=== PATIENT | female | born 1945 | race Caucasian/White ===

== ENCOUNTER 2018-01-06 09:58 | Inpatient (IN) | payer MEDICARE, BC ==
[2018-01-06] MEDS ORDERED: SODIUM CHLORIDE 0.9% 1,000 ML IV ONE (10:25)
[2018-01-06 10:49] LABS: Anisocytosis Slight; Basophils % (A) 1 %; Eosinophils # (A) 0.3 k/uL (0-0.7); Eosinophils % (A) 4 %; HCT 40.6 % (34.0-46.0); HGB 12.8 gm/dL (11.4-16.0); Hypochromasia Slight; Lymphocytes # (A) 0.7 k/uL (1.0-4.8); Lymphocytes % (A) 9 %; MCH 25.4 pg (25.0-35.0); MCHC 31.6 g/dL (31.0-37.0); MCV 80.4 fL (80.0-100.0); Mean Platelet Volume 8.9; Monocytes # (A) 0.8 k/uL (0-1.0); Monocytes % (A) 11 %; Neutrophils % (A) 75 %; Platelet Count 163 k/uL (150-450); RBC 5.05 m/uL (3.80-5.40)
--- NOTE | 2018-01-06 10:49 | ED ---
Skin/Abscess/FB HPI <Fernando Hu - Last Filed: 01/06/18 11:36> - General Source: patient Mode of arrival: ambulatory Limitations: no limitations <Rachel Chapa - Last Filed: 01/06/18 16:46> - General Chief complaint: Skin/Abscess/Foreign Body Stated complaint: Finger abscess Time Seen by Provider: 01/06/18 10:07 - History of Present Illness Initial comments: 72-year-old female past medical history of coronary artery disease, hypertension , end-stage renal disease and lymphoma status post bone marrow transplant presenting today for chief complaint of left middle finger abscess, swelling and pain. She states that 3 weeks ago she noticed a bump on her knuckle. Sunday of last week pt noticed it looked as though it developed a pus pocket. Patient scheduled appointment with her primary care provider, who performed an I&D and patient was discharged with a prescription for doxycycline 100 mg twice a day. Patient states this was performed by nurse practitioner Marsha. Patient states she has been compliant with medication, however the swelling, redness and pain has increased. Patient states that is difficult to extend finger secondary to pain and swelling. She states that the pulses returned, and seemed to spread. Patient denies any fever or chills, general malaise. When symptoms began to worsen today she presents emergency department for evaluation. Upon arrival patient afebrile, nontoxic-appearing. Vital signs within acceptable limits. Remainder of ROS negative, Patient denies any recent shortness of breath, chest pain, back pain, abdominal pain, nausea or vomiting, numbness or tingling, dysuria or hematuria, constipation or diarrhea, headaches or visual changes, or any other complaints. Upon arrival pt is well appearing, VS within acceptable limits. Afebrile. (Rachel Chapa) - Related Data Home Medications Medication Instructions Recorded Confirmed ALPRAZolam [Xanax] 0.5 mg PO BID 01/06/18 01/06/18 Acetaminophen [Tylenol Arthritis] 650 mg PO BID 01/06/18 01/06/18 Atenolol [Tenormin] 50 mg PO DAILY 01/06/18 01/06/18 Atorvastatin [Lipitor] 20 mg PO HS 01/06/18 01/06/18 Cholecalciferol (Vitamin D3) 2,000 unit PO DAILY 01/06/18 01/06/18 [Vitamin D3] Gabapentin [Neurontin] 100 mg PO DAILY PRN 01/06/18 01/06/18 Isosorbide Mononitrate ER [Imdur] 60 mg PO DAILY 01/06/18 01/06/18 RX: Aspirin EC [Ecotrin] 325 mg PO DAILY 01/06/18 01/06/18 RX: Calcitriol 0.5 mcg PO DAILY 01/06/18 01/06/18 RX: Calcitriol 0.5 mcg PO MOWEFR 01/06/18 01/06/18 RX: Doxycycline Hyclate 100 mg PO BID 01/06/18 01/06/18 RX: Omeprazole [PriLOSEC] 20 mg PO DAILY 01/06/18 01/06/18 RX: Sodium Bicarbonate Tab 1,300 mg PO BID 01/06/18 01/06/18 Sertraline [Zoloft] 100 mg PO DAILY 01/06/18 01/06/18 Zolpidem [Ambien] 10 mg PO HS PRN 01/06/18 01/06/18 amLODIPine [Norvasc] 10 mg PO DAILY 01/06/18 01/06/18 Allergies Allergy/AdvReac Type Severity Reaction Status Date / Time filgrastim [From Neupogen] AdvReac Unknown Verified 01/06/18 14:45 Review of Systems ROS Other: All systems not noted in ROS Statement are negative. <Fernando Hu - Last Filed: 01/06/18 11:36> ROS Other: All systems not noted in ROS Statement are negative. Constitutional: Reports: night sweats (chronic since lymphoma-no changes). Denies: fever, chills Respiratory: Denies: cough, dyspnea, wheezes, hemoptysis, stridor Cardiovascular: Denies: chest pain, palpitations Endocrine: Denies: fatigue Gastrointestinal: Denies: abdominal pain, nausea, vomiting, diarrhea, constipation, hematemesis, melena Genitourinary: Denies: urgency, dysuria, frequency, hematuria, discharge Musculoskeletal: Denies: back pain Skin: Reports: as per HPI, change in color (eyrthema/swelling left middle finger ) Neurological: Denies: headache, weakness, numbness, paresthesias, confusion <Rachel Chapa - Last Filed: 01/06/18 16:46> ROS Statement: Those systems with pertinent positive or pertinent negative responses have been documented in the HPI. Past Medical History Past Medical History: Hyperlipidemia, Hypertension Additional Past Medical History / Comment(s): Lymphoma, end stage renal failure History of Any Multi-Drug Resistant Organisms: None Reported Past Surgical History: Heart Catheterization With Stent Past Psychological History: Anxiety Smoking Status: Former smoker Past Alcohol Use History: None Reported Past Drug Use History: None Reported <Rachel Chapa - Last Filed: 01/06/18 16:46> General Exam <HuFernando - Last Filed: 01/06/18 11:36> Limitations: no limitations <Rachel Chapa - Last Filed: 01/06/18 16:46> - General Exam Comments Initial Comments: General: The patient is awake and alert, in no distress, and does not appear acutely ill. Eye: Pupils are equal, round and reactive to light, extra-ocular movements are intact. No nystagmus. There is normal conjunctiva bilaterally. No signs of icterus. Ears, nose, mouth and throat: There are moist mucous membranes and no oral lesions. Cardiovascular: There is a regular rate and rhythm. No murmur, rub or gallop is appreciated. Respiratory: Lungs are clear to auscultation, respirations are non-labored, breath sounds are equal. No wheezes, stridor, rales, or rhonchi. Musculoskeletal: Normal ROM, no tenderness. Strength 5/5. Sensation intact. Pulses equal bilaterally 2+. Neurological: A&O x 3. CN II-XII intact, There are no obvious motor or sensory deficits. Coordination appears grossly intact. Speech is normal. Skin: Skin is warm and dry. Left middle finger, fusiform swelling and erythema. Abscess noted at proximal end of finger nail plate. Fluctuant. Patient is unable to fully extend finger secondary to pain. Patient has tenderness to patient along the flexor tendon. Psychiatric: Cooperative, appropriate mood & affect, normal judgment. (Rachel Chapa) Vital Signs 01/06/18 09:59 Temperature 98.6 F Pulse Rate 79 Respiratory 16 Rate Blood Pressure 141/85 O2 Sat by Pulse 98 Oximetry Procedures - Incision & Drainage Consent Obtained: verbal consent Time Out Performed?: Yes Indication: left middle f imger Site: hand Size (cm): 2 Anesthetic Used: lidocaine 1% Amount (mLs): 2 I&D Cleaning Method: Iodine Sterile Field Used?: Yes Scalpel Used: #11 Needle Aspiration Performed?: No Irrigation Performed?: Yes I&D Drainage Obtained: Pus (minimal), Blood Culture Obtained?: Yes Patient Tolerated Procedure: well, no complications <Rachel Chapa - Last Filed: 01/06/18 16:46> Medical Decision Making - Lab Data Result diagrams: 01/06/18 10:35 01/06/18 10:35 <Fernando Hu - Last Filed: 01/06/18 11:36> - Lab Data Result diagrams: 01/06/18 10:35 01/06/18 10:35 <Rachel Chapa - Last Filed: 01/06/18 16:46> - Medical Decision Making IClayton, personally saw and examined the patient. I have reviewed and agree with the PA findings, including all diagnostic interpretations and treatment plans as written unless otherwise stated. I was present for the aldana portions of any procedures performed and the inclusive time noted for any critical care statement. (Fernando Hu) 72-year-old presenting today for chief complaint of left middle finger swelling , pain and abscess. Pt currently on doxycycline from primary provider. Cultures pending at [facility] from I&D peformed 12/31. Physical exam findings concerning for paronychia, with subsequent infectious tenosynovitis vs cellulitis with abscess. Blood cultures pending. Wound cultures obtained. Laboratory findings reveal elevation of ESR and CRP. WBC WNL. BUN/Cr elevated, pt end stage renal, upon chart review this appears to be consistent with baseline. I&D performed, drainage was minimum-sterile bandage applied. Pt tolerated procedure well. Pt will be admitted to Dr. Kelly with orthopedic consult. Dr. Trujillo consulted who spoke with Dr. Hu, no further instruction. Pt started on Vancomycin and ceftriaxone. Pt transferred to floor in stable condition. (Rachel Chapa) - Lab Data Lab Results 01/06/18 01/06/18 01/06/18 Range/Units 10:35 10:35 10:35 WBC 8.0 (3.8-10.6) k/uL RBC 5.05 (3.80-5.40) m/uL Hgb 12.8 (11.4-16.0) gm/dL Hct 40.6 (34.0-46.0) % MCV 80.4 (80.0-100.0) fL MCH 25.4 (25.0-35.0) pg MCHC 31.6 (31.0-37.0) g/dL RDW 16.0 H (11.5-15.5) % Plt Count 163 (150-450) k/uL Neutrophils % 75 % Lymphocytes % 9 % Monocytes % 11 % Eosinophils % 4 % Basophils % 1 % Neutrophils # 6.0 (1.3-7.7) k/uL Lymphocytes # 0.7 L (1.0-4.8) k/uL Monocytes # 0.8 (0-1.0) k/uL Eosinophils # 0.3 (0-0.7) k/uL Basophils # 0.0 (0-0.2) k/uL Hypochromasia Slight Anisocytosis Slight ESR 32 H (0-20) mm/hr Sodium 140 (137-145) mmol/L Potassium 4.2 (3.5-5.1) mmol/L Chloride 111 H (98-107) mmol/L Carbon Dioxide 17 L (22-30) mmol/L Anion Gap 12 mmol/L BUN 43 H (7-17) mg/dL Creatinine 2.92 H (0.52-1.04) mg/dL Est GFR (CKD-EPI)AfAm 18 (>60 ml/min/1.73 sqM) Est GFR (CKD-EPI)NonAf 15 (>60 ml/min/1.73 sqM) Glucose 131 H (74-99) mg/dL Plasma Lactic Acid Zeeshan 1.1 (0.7-2.0) mmol/L Calcium 9.4 (8.4-10.2) mg/dL Total Bilirubin 0.8 (0.2-1.3) mg/dL AST 14 (14-36) U/L ALT 22 (9-52) U/L Alkaline Phosphatase 79 (38-126) U/L C-Reactive Protein 69.8 H (<10.0) mg/L Total Protein 6.3 (6.3-8.2) g/dL Albumin 3.6 (3.5-5.0) g/dL Disposition <Fernando Hu - Last Filed: 01/06/18 11:36> Is patient prescribed a controlled substance at d/c from ED?: No Time of Disposition: 11:31 Decision to Admit Reason: Admit from EC Decision Date: 01/06/18 Decision Time: 11:32 <Rachel Chapa - Last Filed: 01/06/18 16:46> Clinical Impression: Cellulitis of left middle finger, Paronychia of left middle finger, Suppurative tenosynovitis of flexor tendon of left hand Disposition: ADMITTED IP TO THIS HOSP Condition: Stable
[2018-01-06 11:05] LABS: Albumin 3.6 g/dL (3.5-5.0); C Reactive Protein 69.8 mg/L (<10.0); Calcium 9.4 mg/dL (8.4-10.2); Potassium 4.2 mmol/L (3.5-5.1); Total Bilirubin 0.8 mg/dL (0.2-1.3); Total Protein 6.3 g/dL (6.3-8.2)
[2018-01-06] MEDS ORDERED: VANCOMYCIN IV PER PHARMACY 1 EACH MISC MISCELLANE PRN (11:10)
[2018-01-06] MEDS ORDERED: NALOXONE 0.4 MG/ML 1 ML VIAL IV PRN (11:27)
[2018-01-06] MEDS ORDERED: ACETAMINOPHEN TAB 325 MG TAB PO PRN (11:27)
[2018-01-06 11:33] LABS: Erythrocyte Sedimentation Rate 32 mm/hr (0-20)
[2018-01-06] MEDS ORDERED: VANCOMYCIN 1,750 MG in SODIUM CHLORIDE 0.9% 500 ML 500 ML IVPB ONE (12:00)
[2018-01-06] MEDS ORDERED: LIDOCAINE 1% INJ 10MG/ML (20 ML MDV) SQ ONE (12:07)
--- NOTE | 2018-01-06 13:03 | P.HPIM ---
History of Present Illness H&P Date: 01/06/18 Chief Complaint: Left middle finger abscess Shonda is a 72-year-old white female well-known to my partner and myself. She reports a three-week history of left middle finger pain that started as a small bump near the nail and gradually worsened. It became red and swollen. She was seen in the office 3 days previously and had incision and drainage. She was started on antibiotics. She reports a got slightly better, but worsened over the past 24 hours. She called the on-call pager and was directed to the emergency room by myself. Currently she has left little finger erythema , edema, and pain. She has known history of chronic renal failure. She denies any chest pains, pressures, or shortness of breath. She denies any nausea or vomiting. Review of Systems All systems: negative Past Medical History Past Medical History: Hyperlipidemia, Hypertension Additional Past Medical History / Comment(s): Lymphoma, end stage renal failure History of Any Multi-Drug Resistant Organisms: None Reported Past Surgical History: Heart Catheterization With Stent Past Psychological History: Anxiety Smoking Status: Former smoker Past Alcohol Use History: None Reported Past Drug Use History: None Reported Medications and Allergies Allergies Allergy/AdvReac Type Severity Reaction Status Date / Time filgrastim [From Neupogen] AdvReac Unknown Verified 01/06/18 10:05 Physical Exam Vitals: Vital Signs Temp Pulse Resp BP Pulse Ox 01/06/18 12:00 69 16 148/96 97 01/06/18 09:59 98.6 F 79 16 141/85 98 Intake and Output 01/05/18 01/06/18 01/06/18 22:59 06:59 14:59 Other: Weight 91.626 kg GENERAL: Doesn't, Well-appearing, well-nourished white female who looks her stated age of 72. HEAD: Atraumatic, normocephalic. EYES: Pupils equal round and reactive to light, extraocular movements intact, sclera anicteric, conjunctiva are normal. ENT:nares patent, oropharynx clear without exudates. Moist mucous membranes. NECK: Normal range of motion, supple without lymphadenopathy or JVD, no thyromegaly LUNGS: Breath sounds clear to auscultation bilaterally and equal. No wheezes rales or rhonchi. HEART: Regular rate and rhythm without murmurs, rubs or gallops.S1S2 Normal ABDOMEN: Soft, nontender, normoactive bowel sounds. No guarding, no rebound. No masses appreciated. EXTREMITIES: Left middle finger has significant edema, erythema to most of the finger the exception of the tip which has devitalized skin at the distal phalanx. NEUROLOGICAL: Cranial nerves II through XII grossly intact. Normal speech, normal gait. PSYCH: Normal mood, normal affect. Results CBC & Chem 7: 01/06/18 10:35 01/06/18 10:35 Labs: Abnormal Lab Results - Last 24 Hours (Table) 01/06/18 01/06/18 Range/Units 10:35 10:35 RDW 16.0 H (11.5-15.5) % Lymphocytes # 0.7 L (1.0-4.8) k/uL ESR 32 H (0-20) mm/hr Chloride 111 H (98-107) mmol/L Carbon Dioxide 17 L (22-30) mmol/L BUN 43 H (7-17) mg/dL Creatinine 2.92 H (0.52-1.04) mg/dL Glucose 131 H (74-99) mg/dL C-Reactive Protein 69.8 H (<10.0) mg/L Thrombosis Risk Factor Assmnt - DVT/VTE Prophylaxis DVT/VTE Prophylaxis: Mechanical Prophylaxis ordered - Choose All That Apply Each Factor Represents 1 point: Minor surgery planned Each Risk Factor Represents 2 Points: Age 61-74 years Thrombosis Risk Factor Assessment Total Risk Factor Score: 3 Thrombosis Risk Factor Assessment Level: Moderate Risk Assessment and Plan (1) Failure of outpatient treatment Current Visit: Yes Status: Acute Code(s): Z78.9 - OTHER SPECIFIED HEALTH STATUS SNOMED Code(s): 964391735 (2) Coronary artery disease Current Visit: Yes Status: Acute Code(s): I25.10 - ATHSCL HEART DISEASE OF [place] CORONARY ARTERY W/O ANG PCTRS SNOMED Code(s): 84663224 (3) Essential (primary) hypertension Current Visit: Yes Status: Acute Code(s): I10 - ESSENTIAL (PRIMARY) HYPERTENSION SNOMED Code(s): 70407157 (4) Hyperlipemia Current Visit: Yes Status: Acute Code(s): E78.5 - HYPERLIPIDEMIA, UNSPECIFIED SNOMED Code(s): 92338673 (5) Lymphoma in remission Narrative/Plan: Non-Hodgkin's Current Visit: Yes Status: Acute Code(s): C85.90 - NON-HODGKIN LYMPHOMA, UNSPECIFIED, UNSPECIFIED SITE SNOMED Code(s): 724833044 (6) Chronic renal failure, stage 4 (severe) Current Visit: Yes Status: Acute Code(s): N18.4 - CHRONIC KIDNEY DISEASE, STAGE 4 (SEVERE) SNOMED Code(s): 67993336 (7) Cellulitis of left middle finger Current Visit: Yes Status: Acute Code(s): L03.012 - CELLULITIS OF LEFT FINGER SNOMED Code(s): 81856738 (8) Paronychia of left middle finger Current Visit: Yes Status: Acute Code(s): L03.012 - CELLULITIS OF LEFT FINGER SNOMED Code(s): 899153951 (9) Suppurative tenosynovitis of flexor tendon of left hand Current Visit: Yes Status: Acute Code(s): M65.142 - OTHER INFECTIVE ([place]) SYNOVITIS, LEFT HAND SNOMED Code(s): 0182748785727846 Plan: He did have a repeat incision and drainage by the PA in the ER. I'll obtain an x-ray now. Labs in the a.m. Orthopedic consult for further evaluation. She' ll be reevaluated in the next 24 hours by medicine. Continue on IV vancomycin, pharmacy to dose. [place] as needed for pain.
[2018-01-06] MEDS: SODIUM CHLORIDE 0.9% 1,000 ML IV SCH (14:13)
--- NOTE | 2018-01-06 17:57 | XR ---
EXAMINATION TYPE: XR hand complete LT DATE OF EXAM: 01/06/2018 COMPARISON: NONE HISTORY: Pain TECHNIQUE: 3 views FINDINGS: There is soft tissue swelling around the middle finger. There is spurring and erosion at th e DIP joint of the index finger. There is moderate spurring at the first carpometacarpal joint. I see no fracture. There is narrowing of the DIP joint of the middle finger. 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 So ft tissue swelling of the middle finger. No evidence of osteomyelitis.
[2018-01-06] MEDS ORDERED: GABAPENTIN 100 MG CAP PO PRN (19:05)
[2018-01-06] MEDS: ATENOLOL 50 MG TAB PO SCH (20:40)
[2018-01-06] MEDS: DOXYCYCLINE 100 MG CAP PO SCH (20:40)
[2018-01-06] MEDS: ZOLPIDEM 10 MG TAB PO SCH (20:41)
[2018-01-06] MEDS: ATORVASTATIN 20 MG TAB PO SCH (20:41)
[2018-01-06] MEDS: SODIUM BICARBONATE TAB 650 MG TAB PO SCH (20:41)
[2018-01-06] MEDS: ALPRAZolam 0.5 MG TAB PO SCH (20:57)
[2018-01-07] MEDS: ACETAMINOPHEN TAB 325 MG TAB PO SCH ×3 (01:45→21:29)
[2018-01-07] MEDS: SODIUM BICARBONATE TAB 650 MG TAB PO SCH ×2 (08:09→21:29)
[2018-01-07] MEDS: ALPRAZolam 0.5 MG TAB PO SCH ×2 (08:10→21:29)
[2018-01-07] MEDS: CHOLECALCIFEROL 1,000 UNIT TAB PO SCH (08:10)
[2018-01-07] MEDS: ASPIRIN 325 MG TAB PO SCH (08:10)
[2018-01-07] MEDS: PANTOPRAZOLE 40 MG TABLET PO SCH (08:10)
[2018-01-07] MEDS: amLODIPine 10 MG TAB PO SCH (08:11)
[2018-01-07] MEDS: SERTRALINE 100 MG TAB PO SCH (08:11)
[2018-01-07] MEDS: HYDROcodone/APAP 7.5-325MG 1 EACH TAB PO PRN ×2 (08:11→16:32)
[2018-01-07] MEDS: CALCITRIOL 0.25 MCG CAP PO SCH ×2 (08:11→08:13)
[2018-01-07] MEDS: ISOSORBIDE MONONITRATE ER 60 MG TAB.ER.24H PO SCH (08:11)
[2018-01-07] MEDS: DOXYCYCLINE 100 MG CAP PO SCH (08:11)
[2018-01-07] MEDS ORDERED: VANCOMYCIN 1,500 MG in SODIUM CHLORIDE 0.9% 250 ML IVPB ONE (09:00)
[2018-01-07 10:39] LABS: Albumin 3.4 g/dL (3.5-5.0); Total Bilirubin 0.8 mg/dL (0.2-1.3)
[2018-01-07 10:51] LABS: Potassium 4.1 mmol/L (3.5-5.1)
[2018-01-07] MEDS ORDERED: DIPH,PERTUS(ACELL)TETVAC-LF 0.5 ML VIAL IM ONE (11:21)
--- NOTE | 2018-01-07 11:52 | P.CONS ---
History of Present Illness - Reason for Consult Consult date: 01/07/18 Finger infection - History of Present Illness This is a 72-year-old female with past medical history significant for lymphoma status post bone marrow transplantation currently stable and not on treatment, chronic kidney disease stage V under the care of Dr. Cabral. Patient states that she developed a lesion to her left middle finger about 3 weeks ago. Started out as a bump that was a grayish in color. She denies any known trauma or repetitive injury to the finger. She does have a remote injury to that finger many years ago with a sewing machine needle going through it and was treated by Dr. Treviño. She has had no problems with this finger no previous wounds to this finger. She denies having any fever or chills. No change in appetite, no nausea vomiting no diarrhea. No dysuria. No chest pain shortness breath or cough. She went to her primary care provider and I&D was done in the office and patient was placed on doxycycline. This wound culture came back positive for MSSA. Despite taking antibiotics, patient continued to have increased swelling and redness and pain with redness and swelling extending into the base of the finger. She came in to [facility] emergency center for evaluation. She was found to be afebrile, white count 8, creatinine 2.92 which appears to be her baseline, CRP 69.8 and ESR 32. 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 Patient was given 1 dose of ceftriaxone and admitted to the hospital on doxycycline and vancomycin. Patient states there's been very minimal if any improvement of the swelling and redness. Orthopedics is following the patient. Review of Systems All systems: negative Constitutional: Denies chills, Denies fatigue, Denies fever, Denies lethargy, Denies malaise, Denies poor appetite, Denies weakness, Denies weight loss Eyes: denies blurred vision, denies pain Ears, nose, mouth and throat: Denies dental pain, Denies headache, Denies mouth pain, Denies sore throat, Denies vertigo Cardiovascular: Reports dyspnea on exertion, Denies chest pain, Denies decreased exercise tolerance, Denies edema, Denies leg edema, Denies lightheadedness, Denies shortness of breath, Denies syncope Respiratory: Denies cough, Denies cough with sputum, Denies dyspnea, Denies excessive sputum, Denies hemoptysis, Denies home oxygen, Denies wheezing Gastrointestinal: Denies abdominal pain, Denies diarrhea, Denies loss of appetite, Denies melena, Denies nausea, Denies vomiting Genitourinary: Denies dysuria, Denies hematuria, Denies urinary frequency Musculoskeletal: Denies frequent falls, Denies gait dysfunction, Denies muscle weakness, Denies myalgias Integumentary: Reports wounds, Denies pruritus, Denies rash Neurological: Denies numbness, Denies weakness Psychiatric: Denies anxiety, Denies depression Endocrine: Denies fatigue, Denies weight change Past Medical History Past Medical History: Hyperlipidemia, Hypertension Additional Past Medical History / Comment(s): Lymphoma, end stage renal failure History of Any Multi-Drug Resistant Organisms: None Reported Past Surgical History: Heart Catheterization With Stent Additional Past Surgical History / Comment(s): bone marrow transplant Date of Last Stent Placement:: 2004 Past Psychological History: Anxiety Smoking Status: Former smoker Past Alcohol Use History: None Reported Additional Past Alcohol Use History / Comment(s): Patient was a smoker one and half packs per day for 34 years and quit 22 years ago. She denies any marijuana or street drug use. No alcohol use. She was at home with her . There are 2 dogs and 2 cats in the home. Her hobby is sewing. Past Drug Use History: None Reported Medications and Allergies Home Medications Medication Instructions Recorded Confirmed Type ALPRAZolam [Xanax] 0.5 mg PO BID 01/06/18 01/06/18 History Acetaminophen [Tylenol Arthritis] 650 mg PO BID 01/06/18 01/06/18 History Aspirin EC [Ecotrin] 325 mg PO DAILY 01/06/18 01/06/18 History Atenolol [Tenormin] 50 mg PO DAILY 01/06/18 01/06/18 History Atorvastatin [Lipitor] 20 mg PO HS 01/06/18 01/06/18 History Calcitriol 0.5 mcg PO DAILY 01/06/18 01/06/18 History Calcitriol 0.5 mcg PO MOWEFR 01/06/18 01/06/18 History Cholecalciferol (Vitamin D3) 2,000 unit PO DAILY 01/06/18 01/06/18 History [Vitamin D3] Doxycycline Hyclate 100 mg PO BID 01/06/18 01/06/18 History Gabapentin [Neurontin] 100 mg PO DAILY PRN 01/06/18 01/06/18 History Isosorbide Mononitrate ER [Imdur] 60 mg PO DAILY 01/06/18 01/06/18 History Omeprazole [PriLOSEC] 20 mg PO DAILY 01/06/18 01/06/18 History Sertraline [Zoloft] 100 mg PO DAILY 01/06/18 01/06/18 History Sodium Bicarbonate Tab 1,300 mg PO BID 01/06/18 01/06/18 History Zolpidem [Ambien] 10 mg PO HS PRN 01/06/18 01/06/18 History amLODIPine [Norvasc] 10 mg PO DAILY 01/06/18 01/06/18 History Allergies Allergy/AdvReac Type Severity Reaction Status Date / Time filgrastim [From Neupogen] AdvReac Unknown Verified 01/06/18 14:45 Physical Exam Vitals: Vital Signs Temp Pulse Pulse Pulse Resp BP BP 01/07/18 07:48 98.2 F 64 20 01/07/18 02:20 98.1 F 65 20 145/75 01/06/18 21:00 97.9 F 60 18 170/99 01/06/18 15:01 97.9 F 60 17 122/68 01/06/18 12:49 97.8 F 61 17 144/82 01/06/18 12:00 69 16 148/96 BP Pulse Ox 01/07/18 07:48 152/82 95 01/07/18 02:20 93 L 01/06/18 21:00 90 L 01/06/18 15:01 92 L 01/06/18 12:49 92 L 01/06/18 12:00 97 Intake and Output 01/06/18 01/07/18 01/07/18 22:59 06:59 14:59 Intake Total 900 300 Output Total 800 500 600 Balance 100 -200 -600 Intake: Oral 900 300 Output: Urine 800 500 600 Other: # Voids 1 2 1 Gen: This is a 72-year-old female. She is sitting up in bed appears to be comfortable and in no acute distress. HEENT: Head is atraumatic, normocephalic. Pupils equal, round. Sclerae is anicteric. Conjunctiva pink. Oral mucous membranes are slightly dry. No thrush noted. Patient has upper and lower dentures in place. NECK: Supple. No JVD. No lymphadenopathy. No thyromegaly. LUNGS: Clear to auscultation. No wheezes or rhonchi. No intercostal retractions. HEART: Regular rate and rhythm. No murmur. ABDOMEN: Soft. Bowel sounds are present. No masses. No tenderness. EXTREMITIES: No pedal edema. No calf tenderness. trace pedal edema to the right lower extremity. Dorsalis pedis is strong bilaterally. To the left middle finger there is open wound below nail bed over the DIP joint with significant swelling and erythema to that area and extending to the MIP joint region. NEUROLOGICAL: Patient is awake, alert and oriented x3. Cranial nerves 2 through 12 are grossly intact. Results CBC & Chem 7: 01/06/18 10:35 01/08/18 07:24 Labs: Abnormal Lab Results - Last 24 Hours (Table) 01/06/18 01/07/18 Range/Units 10:35 09:30 ESR 32 H (0-20) mm/hr Chloride 111 H (98-107) mmol/L Carbon Dioxide 19 L (22-30) mmol/L BUN 37 H (7-17) mg/dL Creatinine 2.53 H (0.52-1.04) mg/dL Glucose 105 H (74-99) mg/dL Total Protein 6.0 L (6.3-8.2) g/dL Albumin 3.4 L (3.5-5.0) g/dL Microbiology - Last 24 Hours (Table) 01/06/18 Unknown Gram Stain - Preliminary Hand - Left Wound Culture - Preliminary Presumptive Staph aureus Assessment and Plan Plan: This is a 72-year-old female who presented to the hospital with possible abscess cellulitis to the left middle finger status post I&D done in the office and a secondary I&D done in the emergency center. Wound culture is MSSA. She is currently on doxycycline and vancomycin which will be switched to ancef. Patient's tetanus status will be updated with Tdap. Hand is to be elevated on 2 pillows. Local wound care will be addressed. Further recommendations as patient progresses. The above dictated assessment and findings were discussed with Dr. Kinney. The impression and plan of care have been directed as dictated. Carmen Florian nurse practitioner acting as scribe for Dr. Kinney.
[2018-01-07] MEDS ORDERED: cefTRIAXone 2,000 MG in SODIUM CHLORIDE 0.9% 100 ML IVPB SCH (12:00)
--- NOTE | 2018-01-07 13:56 | P.PN ---
Subjective Progress Note Date: 01/07/18 Shonda is a 72-year-old white female well-known to my partner and myself. She reports a three-week history of left middle finger pain that started as a small bump near the nail and gradually worsened. It became red and swollen. She was seen in the office 3 days previously and had incision and drainage. She was started on antibiotics. She reports a got slightly better, but worsened over the past 24 hours. She called the on-call pager and was directed to the emergency room by myself. Currently she has left little finger erythema , edema, and pain. She has known history of chronic renal failure. She denies any chest pains, pressures, or shortness of breath. She denies any nausea or vomiting. Above per Dr. Johns 01/07/2018 Patient examined at the bedside. Patient admitted with abscess to left middle finger. S/P I&D x2. Cultures are positive for MSSA. Infectious disease is following. Patient denies SOB. Denies chest pain. Vital signs are stable. PHYSICAL EXAM: GENERAL: This is a 72-year-old female in no apparent distress at the time of examination. Pleasant and cooperative. HEENT: Head is atraumatic, normocephalic. Pupils are equal, round, and reactive to light. Sclerae anicteric. Conjunctivae are clear. Mucus membranes of the mouth are moist. Neck is supple. RESPIRATORY: Clear to auscultation. No wheezes, rales, or rhonchi. No use of accessory muscles. Patient maintaining oxygen saturation greater than 92%. No chest wall tenderness is noted on palpation or with deep breathing. CARDIOVASCULAR: Regular rate and rhythm. S1 and S2 noted. No systolic or diastolic murmur auscultated. No JVD noted. No S3 or S4 noted. GASTROINTESTINAL: No distention noted. Abdomen soft and round. Normal active bowel sounds auscultated x 4 quadrants. No pain or tenderness noted upon palpation. INTEGUMENTARY: No cyanosis. No jaundice. No rashes noted. Dressing noted to left middle finger. EXTREMITIES: 2+ peripheral pulses. No evidence of peripheral edema. No calf tenderness noted. NEUROLOGIC: Cranial nerves II-XII intact. PSYCHIATRIC: Awake, alert, and oriented X 3. Appropriate affect. Intact judgement and insight. ASSESSMENT: Cellulitis/abscess of left middle finger, failed outpatient treatment, s/p I&D x2, would culture positive for MSSA Chronic kidney disease, stage IV Hypertension Hyperlipidemia Lymphoma, in remission Coronary artery disease Obesity: BMI 38.2 PLAN: infectious disease and orthopedics on consult. Appreciate recommendations and input Antibiotics per ID Wound detention meds as appropriate Monitor labs GI prophylaxis: Protonix 40 mg PO Daily DVT prophylaxis: SCDs to bilateral LE Monitor vital signs and address as appropriate Discharge planning: Patient to return home when stable Further recommendations pending patient's course Nurse practitioner note has been reviewed by physician. Signing provider agrees with the documented findings, assessment, and plan of care. Objective - Vital Signs Vital signs: Vital Signs Temp 98.2 F 01/07/18 07:48 Pulse 64 01/07/18 07:48 Resp 20 01/07/18 07:48 BP 152/82 01/07/18 07:48 Pulse Ox 95 01/07/18 07:48 Intake & Output 01/06/18 01/07/18 01/07/18 18:59 06:59 18:59 Intake Total 1200 Output Total 400 900 600 Balance -400 300 -600 Weight 91.626 kg Intake: Oral 1200 Output: Urine 400 900 600 Other: # Voids 1 2 1 - Labs CBC & Chem 7: 01/06/18 10:35 01/07/18 09:30 Labs: Abnormal Lab Results - Last 24 Hours (Table) 01/07/18 Range/Units 09:30 Chloride 111 H (98-107) mmol/L Carbon Dioxide 19 L (22-30) mmol/L BUN 37 H (7-17) mg/dL Creatinine 2.53 H (0.52-1.04) mg/dL Glucose 105 H (74-99) mg/dL Total Protein 6.0 L (6.3-8.2) g/dL Albumin 3.4 L (3.5-5.0) g/dL Microbiology - Last 24 Hours (Table) 01/06/18 Unknown Gram Stain - Preliminary Hand - Left Wound Culture - Preliminary Presumptive Staph aureus
--- NOTE | 2018-01-07 14:25 | P.CNOR ---
History of Present Illness - [facility] Consult date: 01/07/18 Requesting physician: Kamaljit Trujillo Consult reason: other History of present illness: Patient is a 72-year-old female seen at bedside this afternoon. She was admitted 01/06/18 for infection of her left middle finger. Patient states that she developed a lesion to her left middle finger about 3 weeks ago. She states that it started out as a bump that was a grayish in color. She denies any injury or trauma to the hand. She states she has animals including dogs and cats but does not recall them scratching or biting her. She went to her primary care provider and I&D was done in the office and patient was placed on doxycycline. This wound culture came back positive for MSSA. Despite taking antibiotics, patient continued to have increased swelling and redness and pain with redness and swelling extending into the base of the finger. She came in to [facility] emergency center for evaluation. 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 Patient was given 1 dose of ceftriaxone and admitted to the hospital on doxycycline and vancomycin. She has a past medical history significant for lymphoma status post bone marrow transplantation currently stable and not on treatment, chronic kidney disease stage V under the care of Dr. Cabral. Review of systems negative for fever, chills, chest pain, shortness breath, nausea, vomiting, dizziness, headaches, slurred speech or other. Review of Systems All systems: negative Constitutional: Denies chills, Denies fever Eyes: denies blurred vision, denies pain Ears, nose, mouth and throat: Denies headache, Denies sore throat Cardiovascular: Denies chest pain, Denies shortness of breath Respiratory: Denies cough Gastrointestinal: Denies abdominal pain, Denies diarrhea, Denies nausea, Denies vomiting Genitourinary: Denies dysuria, Denies hematuria Musculoskeletal: Denies myalgias Integumentary: Denies pruritus, Denies rash Neurological: Denies numbness, Denies weakness Psychiatric: Denies anxiety, Denies depression Endocrine: Denies fatigue, Denies weight change Past Medical History Past Medical History: Hyperlipidemia, Hypertension Additional Past Medical History / Comment(s): Lymphoma, end stage renal failure History of Any Multi-Drug Resistant Organisms: None Reported Past Surgical History: Heart Catheterization With Stent Additional Past Surgical History / Comment(s): bone marrow transplant Date of Last Stent Placement:: 2004 Past Psychological History: Anxiety Smoking Status: Former smoker Past Alcohol Use History: None Reported Additional Past Alcohol Use History / Comment(s): Patient was a smoker one and half packs per day for 34 years and quit 22 years ago. She denies any marijuana or street drug use. No alcohol use. She was at home with her . There are 2 dogs and 2 cats in the home. Her hobby is sewing. Past Drug Use History: None Reported Medications and Allergies Home Medications Medication Instructions Recorded Confirmed Type ALPRAZolam [Xanax] 0.5 mg PO BID 01/06/18 01/06/18 History Acetaminophen [Tylenol Arthritis] 650 mg PO BID 01/06/18 01/06/18 History Aspirin EC [Ecotrin] 325 mg PO DAILY 01/06/18 01/06/18 History Atenolol [Tenormin] 50 mg PO DAILY 01/06/18 01/06/18 History Atorvastatin [Lipitor] 20 mg PO HS 01/06/18 01/06/18 History Calcitriol 0.5 mcg PO DAILY 01/06/18 01/06/18 History Calcitriol 0.5 mcg PO MOWEFR 01/06/18 01/06/18 History Cholecalciferol (Vitamin D3) 2,000 unit PO DAILY 01/06/18 01/06/18 History [Vitamin D3] Doxycycline Hyclate 100 mg PO BID 01/06/18 01/06/18 History Gabapentin [Neurontin] 100 mg PO DAILY PRN 01/06/18 01/06/18 History Isosorbide Mononitrate ER [Imdur] 60 mg PO DAILY 01/06/18 01/06/18 History Omeprazole [PriLOSEC] 20 mg PO DAILY 01/06/18 01/06/18 History Sertraline [Zoloft] 100 mg PO DAILY 01/06/18 01/06/18 History Sodium Bicarbonate Tab 1,300 mg PO BID 01/06/18 01/06/18 History Zolpidem [Ambien] 10 mg PO HS PRN 01/06/18 01/06/18 History amLODIPine [Norvasc] 10 mg PO DAILY 01/06/18 01/06/18 History Allergies Allergy/AdvReac Type Severity Reaction Status Date / Time filgrastim [From Neupogen] AdvReac Unknown Verified 01/06/18 14:45 Physical Examination Inspection of the left hand shows erythematous and edematous left long finger. There is some superficial drainage and sloughing of the skin the distal portion of the finger. There is minimal bleeding. There does not appear to be any significant erythema of the hand, wrist or arm. Neurovascular status is intact with 2+ radial pulse and less than 2 second capillary refill in all digits. She has active motor at the wrist, hand and all digits. Sensation to touch is intact in all digits. There is no gross deformity. No evidence of foreign body. There does not appear to be any deep fluid collection. Results - Labs Labs: Abnormal Lab Results - Last 24 Hours (Table) 01/07/18 Range/Units 09:30 Chloride 111 H (98-107) mmol/L Carbon Dioxide 19 L (22-30) mmol/L BUN 37 H (7-17) mg/dL Creatinine 2.53 H (0.52-1.04) mg/dL Glucose 105 H (74-99) mg/dL Total Protein 6.0 L (6.3-8.2) g/dL Albumin 3.4 L (3.5-5.0) g/dL Microbiology - Last 24 Hours (Table) 01/06/18 10:35 Blood Culture - Preliminary Blood No Growth after 24 hours 01/06/18 Unknown Gram Stain - Preliminary Hand - Left Wound Culture - Preliminary Presumptive Staph aureus H & H 01/06/18 Range/Units 10:35 Hgb 12.8 (11.4-16.0) gm/dL Hct 40.6 (34.0-46.0) % Result Diagrams: 01/06/18 10:35 01/07/18 09:30 Assessment and Plan (1) Cellulitis of left middle finger Narrative/Plan: Patient appears to have cellulitis of the left long finger as well as superficial abscess that is draining. She is on IV antibiotics. Infectious disease has been consulted. We'll have her do twice a day soaks. Continue elevation. Continue wound care. We will monitor closely make further recommendations as appropriate. May consider irrigation and debridement if does not show improvement over the next 24 hours. We'll further review with Dr. Trujillo. Current Visit: Yes Status: Acute Code(s): L03.012 - CELLULITIS OF LEFT FINGER SNOMED Code(s): 88110894 Time with Patient: Less than 30
[2018-01-07] MEDS: SODIUM CHLORIDE 0.9% 1,000 ML IV SCH ×2 (15:35→21:30)
[2018-01-07] MEDS ORDERED: LIDOCAINE 1% INJ 10MG/ML (20 ML MDV) SQ ONE ×2 (16:15→16:31)
[2018-01-07] MEDS: ATORVASTATIN 20 MG TAB PO SCH (21:29)
[2018-01-07] MEDS: ATENOLOL 50 MG TAB PO SCH (21:30)
[2018-01-07] MEDS: ZOLPIDEM 10 MG TAB PO SCH (21:30)
--- NOTE | 2018-01-07 21:47 | P.CON ---
Consult Note - . Consult date: 01/07/18 Assessment/Plan:: This is a 72-year-old female with past medical history significant for lymphoma status post bone marrow transplantation currently stable and not on treatment, chronic kidney disease stage V under the care of Dr. Cabral. Patient states that she developed a lesion to her left middle finger about 3 weeks ago. Started out as a bump that was a grayish in color. She denies any known trauma or repetitive injury to the finger. She does have a remote injury to that finger many years ago with a sewing machine needle going through it and was treated by Dr. Treviño. She has had no problems with this finger no previous wounds to this finger. She denies having any fever or chills. No change in appetite, no nausea vomiting no diarrhea. No dysuria. No chest pain shortness breath or cough. She went to her primary care provider and I&D was done in the office and patient was placed on doxycycline. This wound culture came back positive for MSSA. Despite taking antibiotics, patient continued to have increased swelling and redness and pain with redness and swelling extending into the base of the finger. She came in to [facility] emergency center for evaluation. She was found to be afebrile, white count 8, creatinine 2.92 which appears to be her baseline, CRP 69.8 and ESR 32. 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 Patient was given 1 dose of ceftriaxone and admitted to the hospital on doxycycline and vancomycin. Patient states there's been very minimal if any improvement of the swelling and redness. Orthopedics is following the patient.Please see the consult note is dictated by nurse practitioner Sasha Carmen Florian Pleasant 72-year-old woman who has an extensive past medical history that includes a bone marrow transplantation from her history of lymphoma. Is doing well with adequate hematological parameters. She however does have progressive renal disease and is followed with Dr. Cabral. She does like to have her nails done. She has no acute trauma. However the left hand third finger continues to be very problematic. There is significant pain and swelling at the base of the nail to the distal phalanx of the third finger. The case is discussed with the orthopedic surgeon and incision and drainage is planned for future will likely have to drain at the nail bed to allow resolution of the significant infectious process.we'll transition antibiotic therapy to Ancef given the MSSA and it's been isolated. The findings at surgery will determine if she needs outpatient intravenous antibiotic therapy. I agree with evaluation, assessment and plan as dictated by nurse practitioner Mrs. Carmen Bassett.
[2018-01-07] MEDS ORDERED: ceFAZolin IN SWFI 2 GM/20 ML SYRINGE IVP SCH (22:00)
--- NOTE | 2018-01-07 22:10 | PN ---
PROGRESS NOTE DATE OF VISIT: 01/07/2018. Shonda is a very pleasant 72-year-old female. She has a history of lymphoma with bone marrow transplant. She had first noticed a scrape and some redness on her left middle finger approximately 2 and half to 3 weeks ago. She just observed it as the infection continued to intensify. She finally presented to the emergency department yesterday that she could no longer take it anymore. She underwent an I and D by the ER physician yesterday and then was admitted to the medical service and we were consulted. Please see the full consult by our physician assistant to the ceo for full history and physical examination for Shonda. EXAM: On examination, she has a very significant dorsal infection on the eponychial fold of her left middle finger. There was no evidence of flexor tenosynovitis. She has absolutely no swelling on the flexor side and no tracking swelling up into the palm. Infection seems to be mostly centered over the dorsal eponychial fold. There is no evidence of purulence. Quite macerated secondary to the chronicity of the infection as well. She is able to flex and extend the DIP, PIP, and MCP joints of the middle finger. IMPRESSION: Eponychial fold infection, left middle finger. RECOMMENDATIONS: This is certainly a fairly significant infection for eponychial fold. It has been going on for quite some time. My recommendation to Shonda is to proceed with bedside incision and drainage as well as removal of her nail. All of Shonda's questions with regards to the procedure were answered to her satisfaction. The risks include continued infection, possibility for the failure of the nail to reform. Possible numbness in the tip of the finger secondary to the chronicity of her infection. All of Shonda questions were answered to her satisfaction and appropriate informed consent was obtained. DESCRIPTION OF PROCEDURE: I did perform a digital nerve block with 1% lidocaine without epinephrine. This provided adequate anesthesia for the procedure. I then proceeded to remove the nail and open up the eponychial fold. This extended proximally. I did make an incision with a 15 blade scalpel on both sides of the eponychial fold and then folded it back to open it even further to allow for drainage of the infection. She tolerated the procedure quite well. There were no complications. After the nail had been removed and the incisions made on both the medial and lateral side of the eponychial fold, I then proceeded to soak her finger in warm soapy water with hydrogen peroxide for approximately 30 minutes. Certainly, this was a bad infection. I did explain to Shonda that her finger will likely not look normal for quite some time and a matter of several months most likely. She is being followed by infectious disease for antibiotic therapy. We will continue with that. She should soak the finger in warm soapy water with hydrogen peroxide added if possible at least 3-4 times daily for half an hour. Daily dressing changes. Elevation of the finger will be helpful as well. All of her questions with regards to treatment at this point were answered to her satisfaction. We will continue to follow. MMODL / IJN: [id number] /
[2018-01-08] MEDS: ceFAZolin 1,000 MG in DEXTROSE/WATER 1 50ML.BAG IVPB SCH ×3 (01:58→22:21)
[2018-01-08 07:55] LABS: Calcium 9.4 mg/dL (8.4-10.2); Potassium 4.1 mmol/L (3.5-5.1)
[2018-01-08] MEDS: HYDROcodone/APAP 7.5-325MG 1 EACH TAB PO PRN ×2 (09:24→20:40)
[2018-01-08] MEDS: SERTRALINE 100 MG TAB PO SCH (09:30)
[2018-01-08] MEDS: CALCITRIOL 0.25 MCG CAP PO SCH (09:31)
[2018-01-08] MEDS: PANTOPRAZOLE 40 MG TABLET PO SCH (09:31)
[2018-01-08] MEDS: SODIUM BICARBONATE TAB 650 MG TAB PO SCH ×2 (09:31→20:42)
[2018-01-08] MEDS: ASPIRIN 325 MG TAB PO SCH (09:31)
[2018-01-08] MEDS: amLODIPine 10 MG TAB PO SCH (09:31)
[2018-01-08] MEDS: ISOSORBIDE MONONITRATE ER 60 MG TAB.ER.24H PO SCH (09:31)
[2018-01-08] MEDS: CHOLECALCIFEROL 1,000 UNIT TAB PO SCH (09:32)
[2018-01-08] MEDS: ALPRAZolam 0.5 MG TAB PO SCH ×2 (09:32→20:42)
[2018-01-08 10:02] LABS: Vancomycin,Random 21.2 ug/mL
--- NOTE | 2018-01-08 11:16 | P.PN ---
Subjective Progress Note Date: 01/08/18 Principal diagnosis: left long finger paronychia, cellulitis, abscess patient is a 72-year-old female seen evidence of this morning. We have been following for left long finger infection. Dr. Trujillo performed at bedside nail resection, January 07, 2018 which she tolerated well without complication. She has continued on IV antibiotics as well as soaks. She feels that is improved today. She has no new complaints. Objective - Vital Signs Vital signs: Vital Signs Temp 97.6 F 01/08/18 08:10 Pulse 62 01/08/18 08:10 Resp 20 01/08/18 08:10 BP 175/99 01/08/18 08:10 Pulse Ox 92 L 01/08/18 08:10 Intake & Output 01/07/18 01/08/18 01/08/18 18:59 06:59 18:59 Intake Total 200 1480 Output Total 1100 200 Balance -900 1280 Intake: Oral 200 1480 Output: Urine 1100 200 Other: # Voids 1 - Exam inspection of the left long finger shows improved edema and erythema about the left long finger. There is no active bleeding. There is mild purulent drainage. Motor is intact with flexion extension. sensation touch is intact. There is no evidence of ascending infection. - Constitutional General appearance: Present: no acute distress - Labs CBC & Chem 7: 01/06/18 10:35 01/08/18 07:24 Labs: Abnormal Lab Results - Last 24 Hours (Table) 01/07/18 01/08/18 Range/Units 09:30 07:24 Chloride 113 H (98-107) mmol/L Carbon Dioxide 18 L (22-30) mmol/L BUN 35 H (7-17) mg/dL Creatinine 2.64 H (0.52-1.04) mg/dL Glucose 121 H (74-99) mg/dL Prealbumin 16.0 L (18.0-42.0) mg/dL Microbiology - Last 24 Hours (Table) 01/06/18 10:35 Blood Culture - Preliminary Blood No Growth after 24 hours 01/06/18 Unknown Gram Stain - Preliminary Hand - Left Wound Culture - Preliminary Presumptive Staph aureus Assessment and Plan (1) Cellulitis of left middle finger Narrative/Plan: Patient will continue with wound care, soaks and IV antibiotic per infectious disease. We'll continue to monitor and make further recommendations as appropriate. Current Visit: Yes Status: Acute Priority: Medium Code(s): L03.012 - CELLULITIS OF LEFT FINGER SNOMED Code(s): 84330171 Time with Patient: Less than 30
[2018-01-08] MEDS: ACETAMINOPHEN TAB 325 MG TAB PO SCH ×2 (11:27→22:23)
--- NOTE | 2018-01-08 13:33 | P.PN ---
Subjective Progress Note Date: 01/08/18 Shonda is a 72-year-old white female well-known to my partner and myself. She reports a three-week history of left middle finger pain that started as a small bump near the nail and gradually worsened. It became red and swollen. She was seen in the office 3 days previously and had incision and drainage. She was started on antibiotics. She reports a got slightly better, but worsened over the past 24 hours. She called the on-call pager and was directed to the emergency room by myself. Currently she has left little finger erythema , edema, and pain. She has known history of chronic renal failure. She denies any chest pains, pressures, or shortness of breath. She denies any nausea or vomiting. Above per Dr. Johns 01/07/2018 Patient examined at the bedside. Patient admitted with abscess to left middle finger. S/P I&D x2. Cultures are positive for MSSA. Infectious disease is following. Patient denies SOB. Denies chest pain. Vital signs are stable. 01/08/2018 Patient examined at bedside. She underwent bedside nail resection and drainage of nail bed yesterday per Dr. Trujillo. infectious disease is following. Await final antibiotic recommendations from ID. PHYSICAL EXAM: GENERAL: This is a 72-year-old female in no apparent distress at the time of examination. Pleasant and cooperative. HEENT: Head is atraumatic, normocephalic. Pupils are equal, round, and reactive to light. Sclerae anicteric. Conjunctivae are clear. Mucus membranes of the mouth are moist. Neck is supple. RESPIRATORY: Clear to auscultation. No wheezes, rales, or rhonchi. No use of accessory muscles. Patient maintaining oxygen saturation greater than 92%. No chest wall tenderness is noted on palpation or with deep breathing. CARDIOVASCULAR: Regular rate and rhythm. S1 and S2 noted. No systolic or diastolic murmur auscultated. No JVD noted. No S3 or S4 noted. GASTROINTESTINAL: No distention noted. Abdomen soft and round. Normal active bowel sounds auscultated x 4 quadrants. No pain or tenderness noted upon palpation. INTEGUMENTARY: No cyanosis. No jaundice. No rashes noted. Dressing noted to left middle finger. EXTREMITIES: 2+ peripheral pulses. No evidence of peripheral edema. No calf tenderness noted. NEUROLOGIC: Cranial nerves II-XII intact. PSYCHIATRIC: Awake, alert, and oriented X 3. Appropriate affect. Intact judgement and insight. ASSESSMENT: Cellulitis/abscess of left middle finger, failed outpatient treatment, s/p I&D x3, would culture positive for MSSA Chronic kidney disease, stage IV Hypertension Hyperlipidemia Lymphoma, in remission Coronary artery disease Obesity: BMI 38.2 PLAN: infectious disease and orthopedics on consult. Appreciate recommendations and input Antibiotics per ID Wound assisted meds as appropriate Monitor labs GI prophylaxis: Protonix 40 mg PO Daily DVT prophylaxis: SCDs to bilateral LE Monitor vital signs and address as appropriate Discharge planning: Patient to return home when stable Further recommendations pending patient's course Home tomorrow once antibiotic recommendations are finalized Nurse practitioner note has been reviewed by physician. Signing provider agrees with the documented findings, assessment, and plan of care. Objective - Vital Signs Vital signs: Vital Signs Temp 97.6 F 01/08/18 08:10 Pulse 62 01/08/18 08:10 Resp 20 01/08/18 08:10 BP 175/99 01/08/18 08:10 Pulse Ox 92 L 01/08/18 08:10 Intake & Output 01/07/18 01/08/18 01/08/18 18:59 06:59 18:59 Intake Total 200 1480 Output Total 1100 200 Balance -900 1280 Intake: Oral 200 1480 Output: Urine 1100 200 Other: # Voids 1 - Labs CBC & Chem 7: 01/06/18 10:35 01/08/18 07:24 Labs: Abnormal Lab Results - Last 24 Hours (Table) 01/07/18 01/08/18 Range/Units 09:30 07:24 Chloride 113 H (98-107) mmol/L Carbon Dioxide 18 L (22-30) mmol/L BUN 35 H (7-17) mg/dL Creatinine 2.64 H (0.52-1.04) mg/dL Glucose 121 H (74-99) mg/dL Prealbumin 16.0 L (18.0-42.0) mg/dL Microbiology - Last 24 Hours (Table) 01/06/18 10:35 Blood Culture - Preliminary Blood No Growth after 24 hours 01/06/18 Unknown Gram Stain - Preliminary Hand - Left Wound Culture - Preliminary Presumptive Staph aureus
[2018-01-08] MEDS: ATENOLOL 50 MG TAB PO SCH (20:41)
[2018-01-08] MEDS: ATORVASTATIN 20 MG TAB PO SCH (20:42)
[2018-01-08] MEDS: SODIUM CHLORIDE 0.9% 1,000 ML IV SCH (20:43)
[2018-01-08] MEDS: ZOLPIDEM 10 MG TAB PO SCH (22:21)
[2018-01-09] MEDS: CHOLECALCIFEROL 1,000 UNIT TAB PO SCH (08:31)
[2018-01-09] MEDS: ALPRAZolam 0.5 MG TAB PO SCH (08:32)
[2018-01-09] MEDS: HYDROcodone/APAP 7.5-325MG 1 EACH TAB PO PRN (08:32)
[2018-01-09] MEDS: PANTOPRAZOLE 40 MG TABLET PO SCH (08:32)
[2018-01-09] MEDS: SERTRALINE 100 MG TAB PO SCH (08:33)
[2018-01-09] MEDS: CALCITRIOL 0.25 MCG CAP PO SCH ×2 (08:33→08:34)
[2018-01-09] MEDS: SODIUM BICARBONATE TAB 650 MG TAB PO SCH (08:33)
[2018-01-09] MEDS: amLODIPine 10 MG TAB PO SCH (08:34)
[2018-01-09] MEDS: ASPIRIN 325 MG TAB PO SCH (08:34)
[2018-01-09] MEDS: ISOSORBIDE MONONITRATE ER 60 MG TAB.ER.24H PO SCH (08:34)
[2018-01-09] MEDS: ACETAMINOPHEN TAB 325 MG TAB PO SCH (08:36)
--- NOTE | 2018-01-09 10:09 | P.DS ---
Providers Date of admission: 01/06/18 11:39 Expected date of discharge: 01/09/18 Attending physician: Nick Kelly Consults: 01/06/18 11:27 Consult Physician Stat Consulting Provider: Kamaljit Trujillo Consult Reason/Comments: infectious tenosynovitis Do you want consulting provider notified?: Yes 01/07/18 09:47 Consult Physician Urgent Consulting Provider: Parvez Kinney Consult Reason/Comments: finger infection Do you want consulting provider notified?: Yes Primary care physician: [facility] Course: Shonda is a 72-year-old white female well-known to my partner and myself. She reports a three-week history of left middle finger pain that started as a small bump near the nail and gradually worsened. It became red and swollen. She was seen in the office 3 days previously and had incision and drainage. She was started on antibiotics. She reports a got slightly better, but worsened over the past 24 hours. She called the on-call pager and was directed to the emergency room by myself. Currently she has left little finger erythema , edema, and pain. She has known history of chronic renal failure. She denies any chest pains, pressures, or shortness of breath. She denies any nausea or vomiting. Above per Dr. Johns 01/07/2018 Patient examined at the bedside. Patient admitted with abscess to left middle finger. S/P I&D x2. Cultures are positive for MSSA. Infectious disease is following. Patient denies SOB. Denies chest pain. Vital signs are stable. 01/08/2018 Patient examined at bedside. She underwent bedside nail resection and drainage of nail bed yesterday per Dr. Trujillo. infectious disease is following. Await final antibiotic recommendations from ID. 01/09/2018 Patient examined at the bedside. Patient states her pain is tolerable at this time. Patient receiving Jber 7.5 mg every 6 hours as needed for pain. Cultures positive for MSSA. Dressing to left finger clean dry and intact. Patient continues to do warm soaks. Infectious disease recommends Keflex 500mg 4 times a day for 14 days. She is stable for discharge home today. Discharge Diagnosis: Cellulitis/abscess of left middle finger, failed outpatient treatment, s/p I&D x3, would culture positive for MSSA Chronic kidney disease, stage IV Hypertension Hyperlipidemia Lymphoma, in remission Coronary artery disease Obesity: BMI 38.2 Nurse practitioner note has been reviewed by physician. Signing provider agrees with the documented findings, assessment, and plan of care. Patient Condition at Discharge: Stable Plan - Discharge Summary New Discharge Prescriptions: New Cephalexin [Keflex] 500 mg PO Q6HR 14 Days #56 cap HYDROcodone/APAP 7.5-325MG [Jber 7.5-325] 1 each PO Q6H PRN tab PRN Reason: Pain Continue Sertraline [Zoloft] 100 mg PO DAILY Isosorbide Mononitrate ER [Imdur] 60 mg PO DAILY Atenolol [Tenormin] 50 mg PO DAILY Acetaminophen [Tylenol Arthritis] 650 mg PO BID amLODIPine [Norvasc] 10 mg PO DAILY Zolpidem [Ambien] 10 mg PO HS PRN PRN Reason: Insomnia Cholecalciferol (Vitamin D3) [Vitamin D3] 2,000 unit PO DAILY Atorvastatin [Lipitor] 20 mg PO HS ALPRAZolam [Xanax] 0.5 mg PO BID Calcitriol 0.5 mcg PO DAILY Calcitriol 0.5 mcg PO MOWEFR Sodium Bicarbonate Tab 1,300 mg PO BID Omeprazole [PriLOSEC] 20 mg PO DAILY Gabapentin [Neurontin] 100 mg PO DAILY PRN PRN Reason: Pain Aspirin EC [Ecotrin] 325 mg PO DAILY Discontinued Doxycycline Hyclate 100 mg PO BID Discharge Medication List ALPRAZolam [Xanax] 0.5 mg PO BID 01/06/18 [History] Acetaminophen [Tylenol Arthritis] 650 mg PO BID 01/06/18 [History] Aspirin EC [Ecotrin] 325 mg PO DAILY 01/06/18 [History] Atenolol [Tenormin] 50 mg PO DAILY 01/06/18 [History] Atorvastatin [Lipitor] 20 mg PO HS 01/06/18 [History] Calcitriol 0.5 mcg PO DAILY 01/06/18 [History] Calcitriol 0.5 mcg PO MOWEFR 01/06/18 [History] Cholecalciferol (Vitamin D3) [Vitamin D3] 2,000 unit PO DAILY 01/06/18 [History] Gabapentin [Neurontin] 100 mg PO DAILY PRN 01/06/18 [History] Isosorbide Mononitrate ER [Imdur] 60 mg PO DAILY 01/06/18 [History] Omeprazole [PriLOSEC] 20 mg PO DAILY 01/06/18 [History] Sertraline [Zoloft] 100 mg PO DAILY 01/06/18 [History] Sodium Bicarbonate Tab 1,300 mg PO BID 01/06/18 [History] Zolpidem [Ambien] 10 mg PO HS PRN 01/06/18 [History] amLODIPine [Norvasc] 10 mg PO DAILY 01/06/18 [History] Cephalexin [Keflex] 500 mg PO Q6HR 14 Days #56 cap 01/09/18 [Rx] HYDROcodone/APAP 7.5-325MG [Jber 7.5-325] 1 each PO Q6H PRN tab 01/09/18 [Rx] Follow up Appointment(s)/Referral(s): [facility], [NON-STAFF] - Nick Kelly Jr, DO [Primary Care Provider] - 1 Week Parvez Kinney MD [STAFF PHYSICIAN] - 1 Week Kamaljit Trujillo MD [STAFF PHYSICIAN] - 1 Week Discharge Disposition: HOME SELF-CARE
[2018-01-09 10:15] VITALS: BP 135/76; PULSE 62; RESP 16; TEMP 97.7
[2018-01-09] MEDS: ceFAZolin 1,000 MG in DEXTROSE/WATER 1 50ML.BAG IVPB SCH (10:25)
--- NOTE | 2018-01-10 08:46 | CDI ---
Last Revision, January 2017 Documentation Clarification Form Date: 01/10/2018 8:34:23 AM From: Ryanne Rojas Phone: If you have a question about this query, please contact Briana Buck Direct Marketing Analyst at [phone] between 8am and 5pm. Admit Date: 01/06/2018 11:39:00 AM Patient Name: Shonda Shaw Visit Number: [id number] Discharge Date:01/09/18 ATTENTION: The Clinical Documentation Specialists (CDI) and [facility] Coding Staff appreciate your assistance in clarifying documentation. Please respond to the clarification below the line at the bottom and electronically sign. The CDI & [facility] Coding staff will review the response and follow-up if needed. Please note: Queries are made part of the Legal Health Record. If you have any questions, please contact the author of this message via ITS. Sae Samayoa MD Conflicting documentation regarding CKD found in patient record. DCS CKD Stage IV, consult CKD Stage V, ED, H and P and consult ESRD. Please clarify stage of CKD. On (insert date and documentation examples) History/Risk Factors: HTN, bone marrow transplant status Clinical Indicators: BUN 43 CREAT 2.92 GFR 15 In your opinion what is the most clinically appropriate diagnosis for this patient? CKD Stage IV CKD Stage V ESRD Other explanation of clinical findings Unable to determine (no explanation for clinical findings) Her labs fallen to the CKD stage IV category Q MTDD
== END 2018-01-09 11:45 | disposition home or self-care (01) | DRG 603 ==
LOC: EC 09:58 → 6PED 11:39
PROVIDERS: ADMIT Family Medicine; ATTEND Family Medicine
PROC: 3E0234Z Introduction of Serum, Toxoid and Vaccine into Muscle, Percutaneous Approach (ICD-10-PCS; principal; 2018-01-07)
PROC: 0HTQXZZ Resection of Finger Nail, External Approach (ICD-10-PCS; 2018-01-07)
PROC: 0H9 Skin and Breast, Drainage (ICD-10-PCS; 2018-01-07)
DX: L03.012 Cellulitis of left finger (principal); L02.512 Cutaneous abscess of left hand; C85.90 Non-Hodgkin lymphoma, unspecified, unspecified site; N18.4 Chronic kidney disease, stage 4 (severe); Z94.81 Bone marrow transplant status; E66.9 Obesity, unspecified; E78.5 Hyperlipidemia, unspecified; F41.9 Anxiety disorder, unspecified; I12.9 Hypertensive chronic kidney disease with stage 1 through stage 4 chronic kidney disease, or unspecified chronic kidney disease; I25.10 Atherosclerotic heart disease of native coronary artery without angina pectoris; M15.4 Erosive (osteo)arthritis; M65.142 Other infective (teno)synovitis, left hand; Z68.38 Body mass index [BMI] 38.0-38.9, adult; Z79.82 Long term (current) use of aspirin; Z79.899 Other long term (current) drug therapy; Z87.891 Personal history of nicotine dependence; Z95.5 Presence of coronary angioplasty implant and graft; B95.61 Methicillin susceptible Staphylococcus aureus infection as the cause of diseases classified elsewhere; Z23 Encounter for immunization
CPT/HCPCS: 10060; 36415; 80048; 80053; 80202; 83605; 83735; 84134; 85025; 85652; 86140; 87040; 87070; 87077; 87186; 87205; 90715; 96360; 99284

== ENCOUNTER → 2018-02-27 | Outpatient (CLI) | payer MEDICARE, BC ==
--- NOTE | 2018-02-27 13:19 | NM ---
EXAMINATION TYPE: NM bone 3 phase DATE OF EXAM: 02/27/2018 COMPARISON: Plain film 01/06/2018 HISTORY: Cellulitis left finger Triple phase bone scintigraphy was performed following the injection of 25.7 mCi Tc 99m MDP. Immedia te images and 3 hours post injection images acquired. FINDINGS: The blood flow is increased to the third digit of the left hand, blood pool and delayed imaging is al so present at the third digit of left hand with more focal uptake at the distal interphalangeal joint on delayed images. Uptake is also present at the level of the carpometacarpal joint of the first dig its in delayed imaging as well as distal interphalangeal joints of the second digits bilaterally, thi rd digit of the right hand and metacarpophalangeal joint of the second digit of the right hand. There are associated arthropathy changes noted on plain film suggesting erosive osteoarthritis. 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
== END | disposition home or self-care (01) ==
LOC: RADNMMAIN 07:26
PROVIDERS: ATTEND Family Medicine
DX: L03.012 Cellulitis of left finger (principal)
CPT/HCPCS: 78315; A9503

== ENCOUNTER 2018-03-11 08:52 | Day surgery (SDC) | payer MEDICARE, BC ==
[2018-03-11] MEDS ORDERED: cefTRIAXone 2,000 MG in SODIUM CHLORIDE 0.9% 100 ML IVPB STA (09:03)
[2018-03-11] MEDS ORDERED: LIDOCAINE 1% INJ 10MG/ML (20 ML MDV) SQ ONE (09:27)
[2018-03-11 10:10] VITALS: PULSE 72; RESP 18
[2018-03-11 10:12] VITALS: BP 123/67
--- NOTE | 2018-03-11 10:56 | IR ---
PICC LINE PLACEMENT: HISTORY: Infection requiring long-term antibiotic therapy PROCEDURE: Ultrasound and fluoroscopic guidance of PICC line placement. COMPLICATIONS: None ANESTHESIA: 1. 1% Lidocaine locally. FINDINGS/TECHNIQUE: The procedure was explained to the patient. The risks, complications, benefits and alternatives were discussed and any questions were answered. Informed consent was obtained. The patient was placed supine on the fluoroscopic table and prepped and draped in the usual sterile fash ion. Utilizing a 21 gauge needle and sonographic and fluoroscopic guidance, access in the left basi lic vein was achieved and there is placement of a 0.018 guidewire. The vein is patent. A 4-F sheath was placed over the guidewire. The guidewire and dilator were removed and a 4-F. PICC line was plac ed through the sheath with the tip at the level of the SVC. The sheath was removed, the catheter was flushed and sutured into position. The patient was stable throughout the procedure and remained sta ble upon discharge from the Department of Radiology. The vein puncture was patent under ultrasound. A hunter scale image was obtained to document patency of the vein punctured. All elements of the maximal barrier technique were utilized. FLUOROSCOPY TIME: 0.2 minutes and one image submitted IMPRESSION: Successful PICC line placement under ultrasound and fluoroscopic guidance.
== END 2018-03-11 10:56 | disposition home or self-care (01) ==
LOC: CATHCVL 08:52
PROVIDERS: ATTEND Radiology Diagnostic Radiology
DX: M86.8X4 Other osteomyelitis, hand (principal); B95.61 Methicillin susceptible Staphylococcus aureus infection as the cause of diseases classified elsewhere; M19.90 Unspecified osteoarthritis, unspecified site; J45.909 Unspecified asthma, uncomplicated; I13.10 Hypertensive heart and chronic kidney disease without heart failure, with stage 1 through stage 4 chronic kidney disease, or unspecified chronic kidney disease; N18.9 Chronic kidney disease, unspecified; E78.5 Hyperlipidemia, unspecified; E66.9 Obesity, unspecified; Z68.35 Body mass index [BMI] 35.0-35.9, adult; G62.9 Polyneuropathy, unspecified; Z79.82 Long term (current) use of aspirin; Z79.899 Other long term (current) drug therapy; Z94.81 Bone marrow transplant status
CPT/HCPCS: 36573; C1751; C1769; J2001

== ENCOUNTER → 2018-10-02 | Outpatient (CLI) | payer MEDICARE, BC ==
[2018-10-02 10:21] LABS: Anisocytosis Slight; HCT 43.1 % (34.0-46.0); HGB 13.3 gm/dL (11.4-16.0); Hypochromasia Moderate; MCH 26.1 pg (25.0-35.0); MCV 84.2 fL (80.0-100.0); Mean Platelet Volume 8.2; Platelet Count 167 k/uL (150-450); RBC 5.12 m/uL (3.80-5.40); RDW 16.5 % (11.5-15.5)
[2018-10-02 10:40] LABS: Potassium 4.4 mmol/L (3.5-5.1)
== END | disposition home or self-care (01) ==
LOC: LABPAT 09:19
PROVIDERS: ATTEND Anesthesiology
DX: Z01.818 Encounter for other preprocedural examination (principal); N19 Unspecified kidney failure
CPT/HCPCS: 36415; 82565; 84132; 84520; 85027; 93005

== ENCOUNTER 2018-10-04 06:56 | Day surgery (SDC) | payer MEDICARE, BC ==
[2018-09-30 18:24] VITALS: BMI 33.7
[~2018-10-04 06:56] MED LIST: DEXAMETHASONE SOD PHOSPHATE 10 MG/ML 1 ML VIAL IV ONE; HEPARIN SODIUM,PORCINE 5,000 UNIT/ML 1 ML VIAL SQ ONE; HYDROmorphone 0.5 MG/0.5 ML SYRINGE IVP PRN; LACTATED RINGERS 1,000 ML IV SCH; LIDOCAINE 1% 20 ML VIAL (10MG/ML) FOR IV START INTRADERMA PRN; MIDAZOLAM 2 MG/2 ML VIAL IV PRN; ONDANSETRON 4 MG/2 ML VIAL IVP ONE; SCOPOLAMINE 1.5MG/72HR PATCH TRANSDERM ONE
[2018-10-04] MEDS ORDERED: SODIUM CHLORIDE 0.9% 500 ML 500 ML IV ONE (07:34)
[2018-10-04] MEDS ORDERED: BUPIVACAIN-EPI 0.25%-1:200,000 30 ML VIAL SQ ONE (07:51)
[2018-10-04] MEDS ORDERED: SUCCINYLCHOLINE CHLORIDE 100 MG/5 ML SYR IV ONE ×2 (07:55)
[2018-10-04] MEDS ORDERED: LIDOCAINE 1% INJ 10MG/ML (20 ML MDV) ONE (07:55)
[2018-10-04] MEDS ORDERED: NEOSTIGMINE 1 MG/ML 10 ML VIAL ONE (07:55)
[2018-10-04] MEDS ORDERED: ROCURONIUM BROMIDE 10 MG/ML 10 ML VIAL IV ONE (07:55)
[2018-10-04] MEDS ORDERED: PHENYLEPHRINE-0.9% NACL SYG 1 MG/10 ML SYRINGE ONE (07:55)
[2018-10-04] MEDS ORDERED: GLYCOPYRROLATE 0.2 MG/ML 2 ML VIAL ONE (07:55)
[2018-10-04] MEDS ORDERED: PROPOFOL 10 MG/ML 20 ML VIAL IV ONE (07:55)
[2018-10-04] MEDS ORDERED: SODIUM CHLORIDE 0.9% (PF) 10 ML VIAL ONE (07:55)
[2018-10-04] MEDS ORDERED: MIDAZOLAM 2 MG/2 ML VIAL ONE (07:55)
[2018-10-04] MEDS ORDERED: fentaNYL (PF) 50 MCG/ML 2 ML AMP ONE (07:55)
--- NOTE | 2018-10-04 07:55 | P.GSHP ---
History of Present Illness H&P Date: 10/04/18 Chief Complaint: Renal failure Patient here today for peritoneal dialysis cath insertion. She was last seen in September of last year. He function has steadily declined. For that reason she contacted our office to have the catheter placed. Patient remains interested in peritoneal dialysis over hemodialysis at this point. History of hiatal hernia and the past. Past Medical History Past Medical History: Coronary Artery Disease (CAD), Cancer, COPD, Eye Disorder, GERD/Reflux, Hyperlipidemia, Hypertension, Myocardial Infarction (MA), Musculoskeletal Disorder, Renal Disease Additional Past Medical History / Comment(s): [place] Lymphoma 2000, 2005. Dustin cataracts, early macular degeneration Lt eye. End stage renal failure, stage IV. 2006 Punctured lung during procedure. Rt knee edema. Rt shoulder pain, Chronic low back/sciatic pain. Rt leg edema freq. Varicose Veins. Hx Staph infection finger 01/2018. 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 TIGRE FILTER 2005. Renal Stent. Exc lymph gland 2000. PICC line. Past Anesthesia/Blood Transfusion Reactions: Motion Sickness Date of Last Stent Placement:: 2004 Smoking Status: Former smoker - Past Family History Father Family Medical History: Cancer Medications and Allergies Home Medications Medication Instructions Recorded Confirmed Type ALPRAZolam [Xanax] 0.5 mg PO BID 01/06/18 10/04/18 History Acetaminophen [Tylenol Arthritis] 1,300 mg PO BID PRN 01/06/18 10/04/18 History Aspirin EC [Ecotrin] 325 mg PO DAILY 01/06/18 10/04/18 History Atenolol [Tenormin] 50 mg PO HS 01/06/18 10/04/18 History Atorvastatin [Lipitor] 20 mg PO HS 01/06/18 10/04/18 History Calcitriol 0.5 mcg PO SUTUTHSA 01/06/18 10/04/18 History Isosorbide Mononitrate ER [Imdur] 60 mg PO DAILY 01/06/18 10/04/18 History Omeprazole [PriLOSEC] 40 mg PO BID 01/06/18 10/04/18 History Sertraline [Zoloft] 100 mg PO DAILY 01/06/18 10/04/18 History Sodium Bicarbonate Tab 1,300 mg PO BID 01/06/18 10/04/18 History Zolpidem [Ambien] 10 mg PO HS PRN 01/06/18 10/04/18 History amLODIPine [Norvasc] 10 mg PO DAILY 01/06/18 10/04/18 History Calcitriol [Rocaltrol] 1 mcg PO MOWEFR 09/30/18 10/04/18 History Cholecalciferol (Vitamin D3) 2,000 unit PO DAILY 09/30/18 10/04/18 History [Vitamin D3] Allergies Allergy/AdvReac Type Severity Reaction Status Date / Time filgrastim [From Neupogen] AdvReac LOW BLOOD Verified 10/04/18 07:08 PRESSURE, FAINT Surgical - Exam Vital Signs Temp Pulse Resp BP Pulse Ox 97.9 F 67 18 172/91 92 L 10/04/18 07:14 10/04/18 07:14 10/04/18 07:14 10/04/18 07:14 10/04/18 07:14 Physical exam: General: Well-developed, well-nourished HEENT: Normocephalic, sclerae nonicteric Abdomen: Nontender, nondistended Extremities: No edema Neuro: Alert and oriented Assessment and Plan (1) Chronic renal failure, stage 4 (severe) Narrative/Plan: Will proceed with peritoneal dialysis catheter insertion at this time. Risks of bleeding, infection, catheter malfunction, bladder bowel injury, adhesions reviewed. She understands and wishes to proceed. Current Visit: No Status: Acute Code(s): N18.4 - CHRONIC KIDNEY DISEASE, STAGE 4 (SEVERE) SNOMED Code(s): 28152099
[2018-10-04] MEDS ORDERED: MINERAL OIL 1 APPLIC/ML OIL TOPICAL ONE (08:36)
[2018-10-04] MEDS ORDERED: NALOXONE 0.4 MG/ML 1 ML VIAL IV PRN (09:03)
[2018-10-04] MEDS ORDERED: HYDROcodone/APAP 5-325MG 1 EACH TAB PO PRN (09:03)
--- NOTE | 2018-10-04 09:05 | P.OP ---
Date of Procedure: 10/04/18 Procedure(s) Performed: PREOPERATIVE DIAGNOSIS: Renal failure POSTOPERATIVE DIAGNOSIS: Same PROCEDURE: Peritoneal dialysis catheter insertion SURGEON: Natacha EBL: Minimal ANESTHESIA: Sedation plus local COMPLICATIONS: None OPERATIVE PROCEDURE: The patient was placed in the operative table in the supine position. His abdomen was prepped and draped in usual sterile fashion. A small vertical incision was made in the left periumbilical location. Dissection down through the subcutaneous tissues took place using electrocautery. The anterior rectus was divided vertically using the scalpel. The rectus was bluntly. The posterior rectus was visualized. An 0 Vicryl pursestring was placed. A small opening in the posterior rectus fascia and peritoneum took place using a Metzenbaum scissors. There were no adhesions to the suture that was placed. The pigtail catheter was advanced into the pelvis over a stylette. No resistance was met. The inner cuff was secured to the fascia using the 0 Vicryl pursestring that was placed. The catheter was tunneled to an exit site in the right lateral lower quadrant. The catheter was connected to the 1 L bag of saline and approximated 800 mL of saline was easily introduced into the peritoneal cavity. The fluid was then allowed to evacuate. The majority of the fluid was returned. The anterior rectus fascia was then reapproximated using a running 0 Vicryl stitch. The subcutaneous tissues reprepped using 3-0 Vicryl sutures and the skin using 4-0 Monocryl sutures. The outpatient dialysis adapter was applied to the end of the catheter. A sterile dressings then applied after skin glue were placed over the incision. DISPOSITION: Stable to recovery room
[2018-10-04 09:17] VITALS: TEMP 97.8
[2018-10-04] MEDS ORDERED: HYDROcodone/APAP 5-325MG 1 EACH TAB PO ONE (10:01)
--- NOTE | 2018-10-04 10:23 | P.PN ---
Progress Note - Text Progress Note Date: 10/04/18 Patient's family is requesting a bedside commode for at home. Patient will be room confined after this recent surgery. House is not set up with an adjacent bathroom. Has been having increased difficulty ambulating. Prescription provided for bedside commode.
[2018-10-04 10:27] VITALS: RESP 18
[2018-10-04 10:53] VITALS: BP 132/76; PULSE 61
== END 2018-10-04 11:19 | disposition home or self-care (01) ==
LOC: OR 06:56
PROVIDERS: ATTEND Surgery
DX: I12.0 Hypertensive chronic kidney disease with stage 5 chronic kidney disease or end stage renal disease (principal); N18.6 End stage renal disease; I25.10 Atherosclerotic heart disease of native coronary artery without angina pectoris; I25.2 Old myocardial infarction; D64.9 Anemia, unspecified; E03.9 Hypothyroidism, unspecified; E55.9 Vitamin D deficiency, unspecified; E78.5 Hyperlipidemia, unspecified; E87.2 Acidosis; H26.9 Unspecified cataract; H35.30 Unspecified macular degeneration; J44.9 Chronic obstructive pulmonary disease, unspecified; I83.891 Varicose veins of right lower extremity with other complications; M54.40 Lumbago with sciatica, unspecified side; G89.29 Other chronic pain; K21.9 Gastro-esophageal reflux disease without esophagitis; Z87.891 Personal history of nicotine dependence; Z85.72 Personal history of non-Hodgkin lymphomas; Z79.82 Long term (current) use of aspirin; Z79.899 Other long term (current) drug therapy; Z86.19 Personal history of other infectious and parasitic diseases; Z87.19 Personal history of other diseases of the digestive system; Z94.81 Bone marrow transplant status; Z98.890 Other specified postprocedural states; Z95.5 Presence of coronary angioplasty implant and graft; Z88.8 Allergy status to other drugs, medicaments and biological substances; Z87.39 Personal history of other diseases of the musculoskeletal system and connective tissue; Z80.9 Family history of malignant neoplasm, unspecified; Z84.1 Family history of disorders of kidney and ureter
CPT/HCPCS: 49421; J2250; J1644; J1100; J2710; J0690; J2405; J2001; J3010; J2370; J0330; J2704

== ENCOUNTER → 2018-10-16 | Outpatient (CLI) | payer MEDICARE, BC | END | disposition home or self-care (01) | LOC: LABWHC1 09:11 | PROVIDERS: ATTEND Nurse Practitioner Family | DX: R53.83 Other fatigue (principal) | CPT/HCPCS: 36415; 80074 ==